=== PATIENT | male | born 1985 | race Caucasian/White ===

== ENCOUNTER 2016-11-14 17:39 | Inpatient (IN) | payer OTHER ==
[2016-11-14] MEDS ORDERED: Sodium Chloride 0.9% 1,000 ML IV ONE (17:43)
[2016-11-14] MEDS ORDERED: methylPREDNISolone Sodium Succinate 125 MG/2 ML SDV IVPUSH ONE (17:43)
[2016-11-14] MEDS ORDERED: Albuterol/Ipratropium 3.0-0.5 MG/3 ML Neb Soln NEB ONE (17:43)
[2016-11-14] MEDS ORDERED: Ondansetron 4 MG/2 ML SDV IVPUSH ONE (17:46)
--- NOTE | 2016-11-14 17:47 | EDM.PDOC ---
ED HPI GENERAL MEDICAL PROBLEM - General Stated Complaint: HARD TIME BREATHING Time Seen by Provider: 11/14/16 17:44 Source of Information: Reports: Patient - History of Present Illness INITIAL COMMENTS - FREE TEXT/NARRATIVE: HISTORY AND PHYSICAL: History of present illness: [] Patient presents with cough and wheeze he feels short of breath although is in no distress no retractions, he is secondary complaint of vomiting he states this is nonstop the last vomiting episode was 10 minutes prior to arrival, he was seen earlier in the week through walk-in clinic they had diagnosed him with viral syndrome Complains of intermittent fever and chills and shortness of breath no chest pain dizziness or palpitation no bowel or urine symptoms Review of systems: As per history of present illness and below otherwise all systems reviewed and negative. Past medical history: As per history of present illness and as reviewed below otherwise noncontributory. Surgical history: As per history of present illness and as reviewed below otherwise noncontributory. Social history: No reported history of drug or alcohol abuse. Family history: As per history of present illness and as reviewed below otherwise noncontributory. Physical exam: HEENT: Atraumatic, normocephalic, pupils reactive, negative for conjunctival pallor or scleral icterus, mucous membranes moist, throat clear, neck supple, nontender, trachea midline. Lungs: Patient does have expiratory wheeze at the base breath sounds equal bilaterally, chest nontender. Heart: S1S2, regular, negative for clicks, rubs, or JVD. Abdomen: Soft, nondistended, nontender. Negative for masses or hepatosplenomegaly. Negative for costovertebral tenderness. Pelvis: Stable nontender. Genitourinary: Deferred. Rectal: Deferred. Extremities: Atraumatic, negative for cords or calf pain. Neurovascular unremarkable. Neuro: Awake, alert, oriented. Cranial nerves II through XII unremarkable. Cerebellum unremarkable. Motor and sensory unremarkable throughout. Exam nonfocal. Diagnostics: [] CBC CMP Strep Influenza Chest 2 views Therapeutics: [] 1 L normal saline bolus DuoNeb Solu-Medrol 125 mg IV Zofran Zosyn Admitted inpatient Impression: [] cough/Wheeze Nausea/vomiting Fever Leukopenia Definitive disposition and diagnosis as appropriate pending reevaluation and review of above. Generalized Pain Score (Numeric/FACES): 8 - Related Data Allergies Allergy/AdvReac Type Severity Reaction Status Date / Time No Known Allergies Allergy Verified 11/14/16 18:04 Home Meds: Home Meds Amoxicillin/Potassium Clav [Augmentin 875-125 Tablet] 11/14/16 [History] ED ROS GENERAL - Review of Systems Review Of Systems: ROS reveals no pertinent complaints other than HPI. ED EXAM, GENERAL - Physical Exam Exam: See Below Course - Vital Signs Last Recorded V/S: Last Vital Signs Temp 38.1 C 11/14/16 17:53 Pulse 101 H 11/14/16 17:53 Resp 22 H 11/14/16 17:53 BP 137/69 11/14/16 17:53 Pulse Ox 97 11/14/16 17:53 - Orders/Labs/Meds Orders: Active Orders 24 hr Category Date Time Status Admission Status [Patient Status] [ADT] Stat ADT 11/14/16 18:57 Ordered RT Aerosol Therapy [RC] ASDIRECTED Care 11/14/16 17:43 Active Chest 2V [CR] Stat Exams 11/14/16 17:42 Taken CULTURE BLOOD [BC] Stat Lab 11/14/16 18:19 Ordered CULTURE BLOOD [BC] Stat Lab 11/14/16 18:19 Ordered INFLUENZA A+B AG SCREEN [RM] Stat Lab 11/14/16 18:35 Received STREP SCRN A RAPID W CULT CONF [RM] Stat Lab 11/14/16 18:38 Received UA W/MICROSCOPIC [URIN] Stat Lab 11/14/16 17:47 Uncollected Piperacillin/Tazobactam [Piperacil-Tazobact] 3.375 gm Med 11/14/16 18:57 Ordered Sodium Chloride 0.9% [Normal Saline] 50 ml IV ONETIME Blood Culture x2 Reflex Set [OM.PC] Stat Oth 11/14/16 18:19 Ordered Medication Orders Piperacillin Sod/Tazobactam (Sod 3.375 gm/ Sodium Chloride) 50 mls @ 100 mls/ hr IV ONETIME ONE Stop: 11/14/16 19:26 Labs: Laboratory Tests 11/14/16 11/14/16 11/14/16 Range/Units 18:10 18:10 18:10 WBC 3.23 L (4.0-11.0) K/uL RBC 5.22 (4.50-5.90) M/uL Hgb 14.3 (13.0-17.0) g/dL Hct 41.7 (38.0-50.0) % MCV 79.9 L (80.0-98.0) fL MCH 27.4 (27.0-32.0) pg MCHC 34.3 (31.0-37.0) g/dL RDW Std Deviation 37.0 (28.0-62.0) fl RDW Coeff of Kristian 13 (11.0-15.0) % Plt Count 107 L (150-400) K/uL MPV 9.90 (7.40-12.00) fL Neut % (Auto) 50.7 (48.0-80.0) % Lymph % (Auto) 44.0 H (16.0-40.0) % [place] % (Auto) 5.0 (0.0-15.0) % Eos % (Auto) 0.0 (0.0-7.0) % Baso % (Auto) 0.3 (0.0-1.5) % Neut # (Auto) 1.6 (1.4-5.7) K/uL Lymph # (Auto) 1.4 (0.6-2.4) K/uL [place] # (Auto) 0.2 (0.0-0.8) K/uL Eos # (Auto) 0.0 (0.0-0.7) K/uL Baso # (Auto) 0.0 (0.0-0.1) K/uL Nucleated RBC % 0.0 /100WBC Nucleated RBCs # 0 K/uL Lactate 1.5 (0.20-2.00) mmol/L Sodium 133 L (136-146) mmol/L Potassium 3.9 (3.5-5.1) mmol/L Chloride 99 (98-110) mmol/L Carbon Dioxide 22 (21-31) mmol/L BUN 10 (6.0-23.0) mg/dL Creatinine 0.8 (0.6-1.5) mg/dL Est Cr Clr Drug Dosing 149.81 mL/min Estimated GFR (MDRD) > 60.0 ml/min Glucose 89 (60-110) mg/dL Calcium 8.2 L (8.8-10.8) mg/dL Total Bilirubin 0.4 (0.1-1.5) mg/dL AST 43 H (5-40) IU/L ALT 47 (8-54) IU/L Alkaline Phosphatase 63 (40-150) Total Protein 7.1 (6.0-8.0) g/dL Albumin 3.7 (3.5-5.0) g/dL Globulin 3.4 (2.0-3.5) g/dL Albumin/Globulin Ratio 1.1 L (1.3-2.8) Meds: Medications Generic Name Dose Route Start Last Admin Trade Name Freq PRN Reason Stop Dose Admin Piperacillin Sod/Tazobactam 50 mls @ 100 mls/hr 11/14/16 18:57 Sod 3.375 gm/ Sodium Chloride IV 11/14/16 19:26 ONETIME ONE Discontinued Medications Generic Name Dose Route Start Last Admin Trade Name Freq PRN Reason Stop Dose Admin Albuterol/Ipratropium 3 ml 11/14/16 17:43 11/14/16 17:49 Duoneb 3.0-0.5 Mg/3 Ml NEB 11/14/16 17:44 3 ml ONETIME ONE Administration Sodium Chloride 1,000 mls @ 999 mls/hr 11/14/16 17:43 11/14/16 18:17 Normal Saline IV 11/14/16 18:43 999 mls/hr STAT ONE Administration Methylprednisolone Sodium Succinate 125 mg 11/14/16 17:43 11/14/16 18:13 Solu-Medrol IVPUSH 11/14/16 17:44 125 mg ONETIME ONE Administration Ondansetron HCl 8 mg 11/14/16 17:46 11/14/16 18:13 Zofran IVPUSH 11/14/16 17:47 8 mg ONETIME ONE Administration Departure - Departure Time of Disposition: 18:59 Disposition: Admitted As Inpatient 65 Condition: poor Clinical Impression: Leukopenia - My Orders Last 24 Hours: My Active Orders 11/14/16 17:42 Chest 2V [CR] Stat 11/14/16 17:43 RT Aerosol Therapy [RC] ASDIRECTED 11/14/16 17:47 UA W/MICROSCOPIC [URIN] Stat 11/14/16 18:19 CULTURE BLOOD [BC] Stat CULTURE BLOOD [BC] Stat Blood Culture x2 Reflex Set [OM.PC] Stat 11/14/16 18:35 INFLUENZA A+B AG SCREEN [RM] Stat 11/14/16 18:38 STREP SCRN A RAPID W CULT CONF [RM] Stat 11/14/16 18:57 Admission Status [Patient Status] [ADT] Stat Piperacillin/Tazobactam [Piperacil-Tazobact] 3.375 gm Sodium Chloride 0.9% [ Normal Saline] 50 ml IV ONETIME - Assessment/Plan Last 24 Hours: My Active Orders 11/14/16 17:42 Chest 2V [CR] Stat 11/14/16 17:43 RT Aerosol Therapy [RC] ASDIRECTED 11/14/16 17:47 UA W/MICROSCOPIC [URIN] Stat 11/14/16 18:19 CULTURE BLOOD [BC] Stat CULTURE BLOOD [BC] Stat Blood Culture x2 Reflex Set [OM.PC] Stat 11/14/16 18:35 INFLUENZA A+B AG SCREEN [RM] Stat 11/14/16 18:38 STREP SCRN A RAPID W CULT CONF [RM] Stat 11/14/16 18:57 Admission Status [Patient Status] [ADT] Stat Piperacillin/Tazobactam [Piperacil-Tazobact] 3.375 gm Sodium Chloride 0.9% [ Normal Saline] 50 ml IV ONETIME
[2016-11-14 18:40] LABS: CHLORIDE,CL 99 mmol/L (98-110); SODIUM,NA 133 mmol/L (136-146)
[2016-11-14] MEDS ORDERED: Piperacillin/Tazobactam 3.375 GM in Sodium Chloride 0.9% 50 ML IV ONE (18:57)
[2016-11-14] MEDS ORDERED: LORazepam 2 MG/ML MDV IVPUSH ONE (20:09)
[2016-11-14] MEDS ORDERED: LORazepam 2 MG/ML MDV IM PRN (20:11)
[2016-11-14] MEDS ORDERED: Levofloxacin/Dextrose 5%-Water 750 MG in Premix Bag 1 BAG IV ONE (20:12)
--- NOTE | 2016-11-14 20:25 | PCM.HP ---
H&P History of Present Illness - General Date of Service: 11/14/16 Admit Problem/Dx: Admission Diagnosis/Problem Admission Diagnosis/Problem Leukopenia Source of Information: Patient, Provider - History of Present Illness Initial Comments - Free Text/Narative: He came to the ER today complaining of over two weeks of fever and malaise. He has had mild cough. He was noted to be leukopenic. Admission was requested. He complains of severe anxiety now. A friend who is with him states that he sometimes suffers from anxiety. There seems to be some inconsistency in his history. There is some question as to whether he has truly had a fever off and on for 2 weeks. 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 He states he has not sought medical care for this recently. Generalized Pain Score (Numeric/FACES): 8 - Related Data Allergies/Adverse Reactions: Allergies Allergy/AdvReac Type Severity Reaction Status Date / Time No Known Allergies Allergy Verified 11/14/16 18:04 Home Medications: Home Meds Amoxicillin/Potassium Clav [Augmentin 875-125 Tablet] 11/14/16 [History] Past Medical History HEENT History: Reports: None Cardiovascular History: Denies: Bypass, Cardiomyopathy, Heart Failure Respiratory History: Denies: COPD, Cystic Fibrosis Gastrointestinal History: Denies: Chronic diarrhea, Cirrhosis Genitourinary History: Denies: Chronic renal insuffiency Musculoskeletal History: Reports: Amputation (traumatic amputation fingers 4,5) Neurological History: Denies: Alzheimers disease Psychiatric History: Reports: Anxiety Endocrine/Metabolic History: Denies: Diabetes, type I, Diabetes, type II Hematologic History: Denies: Anticoagulation therapy, Bleeding disorder Oncologic (Cancer) History: Reports: None - Past Surgical History Musculoskeletal Surgical History: Reports: Other (see below) (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) Social & Family History - Family History Family Medical History: Noncontributory - Tobacco Use Smoking Status *Q: Current Some Day Smoker Years of Tobacco use: 5 Packs/Tins Daily: 0.2 - Caffeine Use Caffeine Use: Reports: Soda - Recreational Drug Use Recreational Drug Use: Yes Drug Use in Last 12 Months: Yes Recreational Drug Type: Reports: Methamphetamine Recreational Drug Use Frequency: Daily H&P Review of Systems - Review of Systems: Review Of Systems: See Below General: Reports: fever HEENT: Denies: headaches Pulmonary: Reports: Shortness of Breath, Cough Cardiovascular: Reports: other (He reports a history of chest pain in the center of his chest but his history is inconsistent. He does not seem to be having pain now.) Gastrointestinal: Denies: Abdominal pain, Black stool, Bloody stool Genitourinary: Denies: dysuria, frequency Exam - Exam Exam: See Below - Vital Signs Vital Signs: Last Vital Signs Temp 99.4 F 11/14/16 19:51 Pulse 104 H 11/14/16 19:51 Resp 17 11/14/16 19:51 BP 114/65 11/14/16 19:51 Pulse Ox 94 L 11/14/16 19:51 Weight: 90.718 kg - Exam General: alert, other (He is alert but very anxious appearing. He seems hesitant to answer my questions. He seems slightly agitated. He keeps his eyes closed while I talk to him.) Neck: supple, trachea midline Lungs: Clear to auscultation (Slight coarsening of breath sounds per), Normal respiratory effort Cardiovascular: regular rate, regular rhythm Abdomen: soft. No: tenderness Rectal (Males) Exam: Deferred Extremities: No: edema Neurological: normal speech Neuro Extensive - Motor, Sensory, Reflexes: No: facial palsy (L), facial palsy ( R) Psychiatric: agitated (He seems slightly agitated.) - Patient Data Result Diagrams: 11/14/16 18:10 11/14/16 18:10 Fidel Results last 24 hrs: Microbiology 11/14/16 19:20 Anaerobic Blood Culture - Final Blood - Arm, Right *Q Meaningful Use (ADM) - VTE *Q VTE Criteria *Q: - Stroke *Q Stroke Criteria *Q: - AMI *Q AMI Criteria *Q: - Problem List (1) Fever SNOMED Code(s): 754222440 ICD Code: R50.9 - FEVER, UNSPECIFIED Status: Acute Current Visit: Yes (2) Leukopenia SNOMED Code(s): 10319686 ICD Code: D72.819 - DECREASED WHITE BLOOD CELL COUNT, UNSPECIFIED Status: Acute Current Visit: Yes Problem List Initiated/Reviewed/Updated: Yes Orders Last 24hrs: Active Orders 24 hr Category Date Time Status LYME/B.BURGDORFERI IGG/IGM [REF] Urgent Lab 11/14/16 20:17 Ordered MISC TEST Urgent Lab 11/14/16 20:20 Ordered Doxycycline [Vibramycin] 100 mg Med 11/14/16 20:15 Ordered Sodium Chloride 0.9% [Normal Saline] 100 ml IV Q12H LORazepam [Ativan] Med 11/14/16 20:11 Ordered 1 mg IM Q4H PRN Levofloxacin/Dextrose 5%-Water [Levaquin in D5W 750 MG/ Med 11/14/16 20:12 Ordered 150 ML] 750 mg Premix Bag 1 bag IV DAILY Piperacillin/Tazobactam [Piperacil-Tazobact] 3.375 gm Med 11/15/16 01:00 Ordered Sodium Chloride 0.9% [Normal Saline] 50 ml IV Q6H Medication Orders Lorazepam (Ativan) 1 mg IM Q4H PRN PRN Reason: Anxiety Assessment/Plan Comment:: Because of his behavior I am somewhat concerned about some type of drug use. Will check a urine drug screen. Will give in the meantime broad spectrum antibiotics. Will check Hx urology panel. I did call lab and requested specifically as I cannot find a specific panel on the computer ordering system. We'll monitor his white count. He denies alcohol use. I will monitor his platelets as he has thrombocytopenia as well I reviewed his chest x-ray was concerned about possibly a right-sided infiltrate. Will cover with broad- spectrum antibiotics including a respiratory fluoroquinolone.
[2016-11-14] MEDS ORDERED: Doxycycline 100 MG in Sodium Chloride 0.9% 100 ML IV SCH (20:30)
[2016-11-14] MEDS ORDERED: Sodium Chloride 0.9% 2.5 ML Syringe FLUSH PRN (20:55)
[2016-11-14] MEDS ORDERED: Sodium Chloride 0.9% 10 ML Syringe FLUSH PRN (20:55)
[2016-11-14] MEDS ORDERED: Ondansetron 4 MG/2 ML SDV IVPUSH PRN (20:55)
[2016-11-14] MEDS ORDERED: Bisacodyl 5 MG Tab PO PRN (20:55)
[2016-11-14] MEDS ORDERED: Temazepam 15 MG Cap PO PRN (20:55)
[2016-11-14] MEDS: Albuterol/Ipratropium 3.0-0.5 MG/3 ML Neb Soln NEB SCH (21:23)
[2016-11-15] MEDS: Piperacillin/Tazobactam 3.375 GM in Sodium Chloride 0.9% 50 ML IV SCH ×4 (00:35→18:04)
[2016-11-15] MEDS: Albuterol/Ipratropium 3.0-0.5 MG/3 ML Neb Soln NEB SCH ×6 (02:05→21:24)
[2016-11-15] MEDS: LORazepam 2 MG/ML MDV IV PRN ×3 (05:28→18:04)
[2016-11-15 06:29] LABS: CHLORIDE,CL 103 mmol/L (98-110); SODIUM,NA 136 mmol/L (136-146)
[2016-11-15] MEDS: Doxycycline 100 MG in Sodium Chloride 0.9% 100 ML IV SCH ×2 (08:51→19:56)
--- NOTE | 2016-11-15 11:04 | PCM.PN ---
- General Info Date of Service: 11/15/16 Subjective Update: He is generally feeling better. He has only a mild headache. - Patient Data Vitals - most recent: Last Vital Signs Temp 96.7 F 11/15/16 08:56 Pulse 77 11/15/16 08:56 Resp 16 11/15/16 08:56 BP 101/55 L 11/15/16 08:56 Pulse Ox 91 L 11/15/16 08:56 Weight - most recent: 94.5 kg I&O - last 24 hours: Intake & Output 11/14/16 11/15/16 11/15/16 22:59 06:59 14:59 Intake Total 100 850 Output Total 1880 Balance 100 -1030 Lab Results last 24 hrs: Laboratory Results - last 24 hr 11/14/16 11/14/16 11/15/16 Range/Units 21:45 21:45 06:00 WBC 1.57 L (4.0-11.0) K/uL RBC 4.93 (4.50-5.90) M/uL Hgb 13.4 (13.0-17.0) g/dL Hct 39.8 (38.0-50.0) % MCV 80.7 (80.0-98.0) fL MCH 27.2 (27.0-32.0) pg MCHC 33.7 (31.0-37.0) g/dL RDW Std Deviation 37.1 (28.0-62.0) fl RDW Coeff of Kristian 13 (11.0-15.0) % Plt Count 118 L (150-400) K/uL MPV 9.70 (7.40-12.00) fL Add Manual Diff YES Neutrophils % (Manual) 53 (48.0-80.0) % Band Neutrophils % 7 % Lymphocytes % (Manual) 38 (16.0-40.0) % Monocytes % (Manual) 2 (0.0-15.0) % Nucleated RBC % 0.0 /100WBC Absolute Seg Neuts 0.8 Band Neutrophils # 0.1 Lymphocytes # (Manual) 0.6 Monocytes # (Manual) 0 Nucleated RBCs # 0 K/uL Sodium (136-146) mmol/L Potassium (3.5-5.1) mmol/L Chloride (98-110) mmol/L Carbon Dioxide (21-31) mmol/L BUN (6.0-23.0) mg/dL Creatinine (0.6-1.5) mg/dL Est Cr Clr Drug Dosing mL/min Estimated GFR (MDRD) ml/min Glucose (60-110) mg/dL Calcium (8.8-10.8) mg/dL Magnesium (1.5-2.3) mEq/L Total Bilirubin (0.1-1.5) mg/dL AST (5-40) IU/L ALT (8-54) IU/L Alkaline Phosphatase (40-150) Total Protein (6.0-8.0) g/dL Albumin (3.5-5.0) g/dL Globulin (2.0-3.5) g/dL Albumin/Globulin Ratio (1.3-2.8) Urine Color YELLOW Urine Appearance CLEAR Urine pH 6.0 (5.0-8.0) Ur Specific [place] 1.010 (1.001-1.035) Urine Protein NEGATIVE (NEGATIVE) mg/dL Urine Glucose (UA) NEGATIVE (NEGATIVE) mg/dL Urine Ketones 15 H (NEGATIVE) mg/dL Urine Occult Blood NEGATIVE (NEGATIVE) Urine Nitrite NEGATIVE (NEGATIVE) Urine Bilirubin NEGATIVE (NEGATIVE) Urine Urobilinogen 0.2 (<2.0) EU/dL Ur Leukocyte Esterase NEGATIVE (NEGATIVE) Urine RBC 0-1 (0-2/HPF) Urine WBC 0-2 (0-5/HPF) Ur Epithelial Cells RARE (NONE-FEW) Urine Bacteria RARE (NEGATIVE) Urine Opiates Screen NEGATIVE (NEGATIVE) Ur Oxycodone Screen NEGATIVE (NEGATIVE) Urine Methadone Screen NEGATIVE (NEGATIVE) Ur Barbiturates Screen NEGATIVE (NEGATIVE) Ur Phencyclidine Scrn NEGATIVE (NEGATIVE) Ur Amphetamine Screen NEGATIVE (NEGATIVE) U Methamphetamines Scrn NEGATIVE (NEGATIVE) U Benzodiazepines Scrn NEGATIVE (NEGATIVE) U Cocaine Metab Screen NEGATIVE (NEGATIVE) U Marijuana (THC) Screen NEGATIVE (NEGATIVE) 11/15/16 Range/Units 06:00 WBC (4.0-11.0) K/uL RBC (4.50-5.90) M/uL Hgb (13.0-17.0) g/dL Hct (38.0-50.0) % MCV (80.0-98.0) fL MCH (27.0-32.0) pg MCHC (31.0-37.0) g/dL RDW Std Deviation (28.0-62.0) fl RDW Coeff of Kristian (11.0-15.0) % Plt Count (150-400) K/uL MPV (7.40-12.00) fL Add Manual Diff Neutrophils % (Manual) (48.0-80.0) % Band Neutrophils % % Lymphocytes % (Manual) (16.0-40.0) % Monocytes % (Manual) (0.0-15.0) % Nucleated RBC % /100WBC Absolute Seg Neuts Band Neutrophils # Lymphocytes # (Manual) Monocytes # (Manual) Nucleated RBCs # K/uL Sodium 136 (136-146) mmol/L Potassium 4.3 (3.5-5.1) mmol/L Chloride 103 (98-110) mmol/L Carbon Dioxide 23 (21-31) mmol/L BUN 11 (6.0-23.0) mg/dL Creatinine 0.8 (0.6-1.5) mg/dL Est Cr Clr Drug Dosing 149.81 mL/min Estimated GFR (MDRD) > 60.0 ml/min Glucose 125 H (60-110) mg/dL Calcium 8.4 L (8.8-10.8) mg/dL Magnesium 1.5 (1.5-2.3) mEq/L Total Bilirubin 0.2 (0.1-1.5) mg/dL AST 39 (5-40) IU/L ALT 44 (8-54) IU/L Alkaline Phosphatase 59 (40-150) Total Protein 7.0 (6.0-8.0) g/dL Albumin 3.7 (3.5-5.0) g/dL Globulin 3.3 (2.0-3.5) g/dL Albumin/Globulin Ratio 1.1 L (1.3-2.8) Urine Color Urine Appearance Urine pH (5.0-8.0) Ur Specific [place] (1.001-1.035) Urine Protein (NEGATIVE) mg/dL Urine Glucose (UA) (NEGATIVE) mg/dL Urine Ketones (NEGATIVE) mg/dL Urine Occult Blood (NEGATIVE) Urine Nitrite (NEGATIVE) Urine Bilirubin (NEGATIVE) Urine Urobilinogen (<2.0) EU/dL Ur Leukocyte Esterase (NEGATIVE) Urine RBC (0-2/HPF) Urine WBC (0-5/HPF) Ur Epithelial Cells (NONE-FEW) Urine Bacteria (NEGATIVE) Urine Opiates Screen (NEGATIVE) Ur Oxycodone Screen (NEGATIVE) Urine Methadone Screen (NEGATIVE) Ur Barbiturates Screen (NEGATIVE) Ur Phencyclidine Scrn (NEGATIVE) Ur Amphetamine Screen (NEGATIVE) U Methamphetamines Scrn (NEGATIVE) U Benzodiazepines Scrn (NEGATIVE) U Cocaine Metab Screen (NEGATIVE) U Marijuana (THC) Screen (NEGATIVE) Fidel Results last 24 hrs: Microbiology 11/14/16 19:20 Anaerobic Blood Culture - Final Blood - Arm, Right Med Orders - Current: Current Medications Albuterol/Ipratropium (Duoneb 3.0-0.5 Mg/3 Ml) 3 ml NEB Q4HRRT KELLY Last Admin: 11/15/16 09:31 Dose: 3 ml Bisacodyl (Dulcolax) 5 mg PO DAILY PRN PRN Reason: Constipation Piperacillin Sod/Tazobactam (Sod 3.375 gm/ Sodium Chloride) 50 mls @ 100 mls/ hr IV Q6H [facility] Last Admin: 11/15/16 06:18 Dose: 100 mls/hr Doxycycline Hyclate 100 mg/ (Sodium Chloride) 100 mls @ 100 mls/hr IV Q12H KELLY Last Admin: 11/15/16 08:51 Dose: 100 mls/hr Lorazepam (Ativan) 1 mg IV Q4H PRN PRN Reason: Anxiety Last Admin: 11/15/16 05:28 Dose: 1 mg Ondansetron HCl (Zofran) 4 mg IVPUSH Q4H PRN PRN Reason: Nausea Sodium Chloride (Saline Flush) 10 ml FLUSH ASDIRECTED PRN PRN Reason: Keep Vein Open Sodium Chloride (Saline Flush) 2.5 ml FLUSH ASDIRECTED PRN PRN Reason: Keep Vein Open Temazepam (Restoril) 15 mg PO BEDTIME PRN PRN Reason: Sleep Discontinued Medications Albuterol/Ipratropium (Duoneb 3.0-0.5 Mg/3 Ml) 3 ml NEB ONETIME ONE Stop: 11/14/16 17:44 Last Admin: 11/14/16 17:49 Dose: 3 ml Sodium Chloride (Normal Saline) 1,000 mls @ 999 mls/hr IV STAT ONE Stop: 11/14/16 18:43 Last Admin: 11/14/16 18:17 Dose: 999 mls/hr Piperacillin Sod/Tazobactam (Sod 3.375 gm/ Sodium Chloride) 50 mls @ 100 mls/ hr IV ONETIME ONE Stop: 11/14/16 19:26 Last Admin: 11/14/16 19:22 Dose: 100 mls/hr Doxycycline Hyclate 100 mg/ (Sodium Chloride) 100 mls @ 100 mls/hr IV Q12H KELLY Last Admin: 11/14/16 21:16 Dose: 100 mls/hr Levofloxacin/Dextrose 750 mg/ (Premix) 150 mls @ 100 mls/hr IV DAILY ONE Stop: 11/14/16 21:41 Last Admin: 11/14/16 22:23 Dose: 100 mls/hr Lorazepam (Ativan) 1 mg IVPUSH ONETIME ONE Stop: 11/14/16 20:10 Last Admin: 11/14/16 20:16 Dose: 1 mg Lorazepam (Ativan) 1 mg IM Q4H PRN PRN Reason: Anxiety Methylprednisolone Sodium Succinate (Solu-Medrol) 125 mg IVPUSH ONETIME ONE Stop: 11/14/16 17:44 Last Admin: 11/14/16 18:13 Dose: 125 mg Ondansetron HCl (Zofran) 8 mg IVPUSH ONETIME ONE Stop: 11/14/16 17:47 Last Admin: 11/14/16 18:13 Dose: 8 mg - Exam General: alert, oriented, cooperative Lungs: Clear to auscultation Cardiovascular: Regular Rate, Regular Rhythm Neurological: normal speech Psy/Mental Status: No: agitated - Problem List & Annotations (1) Fever SNOMED Code(s): 386721796 Code(s): R50.9 - FEVER, UNSPECIFIED Status: Acute Current Visit: Yes (2) Leukopenia SNOMED Code(s): 05720470 Code(s): D72.819 - DECREASED WHITE BLOOD CELL COUNT, UNSPECIFIED Status: Acute Current Visit: Yes - Problem List Review Problem List Initiated/Reviewed/Updated: Yes - My Orders Last 24 Hours: My Active Orders 11/14/16 20:39 Telemetry Monitoring [Cardiac Monitoring] [RC] . DIRECTED 11/14/16 20:55 Bisacodyl [Dulcolax] 5 mg PO DAILY PRN Ondansetron [Zofran] 4 mg IVPUSH Q4H PRN Sodium Chloride 0.9% [Saline Flush] 10 ml FLUSH ASDIRECTED PRN Sodium Chloride 0.9% [Saline Flush] 2.5 ml FLUSH ASDIRECTED PRN Temazepam [Restoril] 15 mg PO BEDTIME PRN Saline Lock Insert [OM.PC] Routine Resuscitation Status Routine 11/14/16 20:57 Oxygen Therapy [RC] PRN VTE/DVT Education [RC] PER UNIT ROUTINE Vital Signs [RC] Q4H 11/14/16 20:59 RT Aerosol Therapy [RC] ASDIRECTED 11/14/16 21:00 LORazepam [Ativan] 1 mg IV Q4H PRN 11/14/16 22:00 Albuterol/Ipratropium [DuoNeb 3.0-0.5 MG/3 ML] 3 ml NEB Q4HRRT 11/14/16 Dinner Regular Diet [DIET] 11/15/16 01:00 Piperacillin/Tazobactam [Piperacil-Tazobact] 3.375 gm Sodium Chloride 0.9% [ Normal Saline] 50 ml IV Q6H 11/15/16 08:00 Head wo Cont [CT] Routine 11/15/16 08:30 Doxycycline [Vibramycin] 100 mg Sodium Chloride 0.9% [Normal Saline] 100 ml IV Q12H 11/16/16 05:11 CBC WITH AUTO DIFF [HEME] AM 11/17/16 05:11 CBC WITH AUTO DIFF [HEME] AM - Plan Plan:: Because of his behavior I am somewhat concerned about some type of drug use. Will check a urine drug screen. Will give in the meantime broad spectrum antibiotics. Will check Hx urology panel. I did call lab and requested specifically as I cannot find a specific panel on the computer ordering system. We'll monitor his white count. He denies alcohol use. I will monitor his platelets as he has thrombocytopenia as well I reviewed his chest x-ray was concerned about possibly a right-sided infiltrate. Will cover with broad- spectrum antibiotics including a respiratory fluoroquinolone. 11/15/2016 Drop in his white blood cell count is noted. Continue broad-spectrum. CT of the head was normal. Anticipate discharge in about 48 hours.
[2016-11-15] MEDS ORDERED: Levofloxacin/Dextrose 5%-Water 750 MG in Premix Bag 1 BAG IV SCH (22:00)
[2016-11-16] MEDS: Piperacillin/Tazobactam 3.375 GM in Sodium Chloride 0.9% 50 ML IV SCH ×3 (01:40→12:17)
[2016-11-16] MEDS: Albuterol/Ipratropium 3.0-0.5 MG/3 ML Neb Soln NEB SCH ×4 (02:00→13:56)
[2016-11-16] MEDS: LORazepam 2 MG/ML MDV IV PRN ×2 (06:56→10:59)
[2016-11-16] MEDS: Doxycycline 100 MG in Sodium Chloride 0.9% 100 ML IV SCH (09:15)
--- NOTE | 2016-11-16 10:32 | CR ---
EXAM DATE: 11/14/16 PATIENT'S AGE: 31 Patient: VALERIE MOURA Facility: [place], [place] Site . Site : 1985 Study: XRay Chest [id number]/22/2017 6:31:15 PM Ordering Physician: Doctor Lozano Final Report: INDICATION: Cough. Wheeze. Technique: PA and lateral chest x-ray. Findings: Shallow inspiration. Bronchovascular markings in the left lung base posterior medially are mildly increased which may be a normal variant or related to mild inflammation. No focal infiltrate or consolidation in either lung. Heart size normal. Minimal elevation right hemidiaphragm. Chest otherwise negative. Dictated by Kody Levine MD @ Nov 14 2016 6:32PM (Electronic Signature) Report Signed by Proxy and Original Signed Document filed in the Medical Record. MTDD
--- NOTE | 2016-11-16 10:33 | CT ---
EXAM DATE: 11/14/16 PATIENT'S AGE: 31 Patient: VALERIE MOURA Facility: [place], [place] Site . Site : 1985 Study: CT Head [id number]/23/2017 8:29:17 AM Ordering Physician: Ashwini Gongora Final Report: INDICATION: OPTIC NERVE TUMOR INDICATION: Optic nerve tumor. TECHNIQUE: CT head without contrast. Coronal/sagittal reconstructed images. COMPARISON: None FINDINGS: CSF spaces: Within normal limits for age. Brain parenchyma: The nick-white differentiation is normal. No sign of mass, hemorrhage, or midline shift. Skull base and calvarium: The visualized paranasal sinuses and mastoid air cells are clear. The visualized orbits are grossly unremarkable. No skull fractures. IMPRESSION: Unremarkable noncontrast head CT. Dictated by Ran Amador MD @ 11/15/2016 8:48:03 AM Dictated by: Ran Amador MD @ 11/15/2016 08:48:16 (Electronic Signature) Report Signed by Proxy and Original Signed Document filed in the Medical Record. [facility]
--- NOTE | 2016-11-16 10:37 | PCM.PN ---
- General Info Date of Service: 11/16/16 Admission Dx/Problem (Free Text): Admission Diagnosis/Problem Admission Diagnosis/Problem Leukopenia Subjective Update: patient denies any pain this morning. He is tolerating oral intake and voiding appropriately. He is ambulating without assistance. He denies any chest pain, palpitations, shortness of breath, wheezing, cough, abdominal pain, nausea, vomiting, constipation, diarrhea, dysuria, hematuria. Functional Status: Reports: pain controlled, tolerating diet, ambulating, urinating - Review of Systems General: Reports: No Symptoms HEENT: Reports: no symptoms Pulmonary: Reports: no symptoms Cardiovascular: Reports: No Symptoms Gastrointestinal: Reports: No symptoms Genitourinary: Reports: no symptoms Musculoskeletal: Reports: no symptoms Skin: Reports: no symptoms Neurological: Reports: No Symptoms Psychiatric: Reports: no symptoms - Patient Data Vitals - most recent: Last Vital Signs Temp 98.4 F 11/16/16 07:29 Pulse 72 11/16/16 07:29 Resp 14 11/16/16 07:29 BP 109/70 11/16/16 07:29 Pulse Ox 91 L 11/16/16 07:29 Weight - most recent: 208 lb 5.389 oz I&O - last 24 hours: Intake & Output 11/15/16 11/16/16 11/16/16 22:59 06:59 14:59 Intake Total 1380 1000 530 Output Total 1200 450 Balance 180 550 530 Lab Results last 24 hrs: Laboratory Results - last 24 hr 11/16/16 Range/Units 06:10 WBC 3.87 L (4.0-11.0) K/uL RBC 5.19 (4.50-5.90) M/uL Hgb 14.1 (13.0-17.0) g/dL Hct 42.0 (38.0-50.0) % MCV 80.9 (80.0-98.0) fL MCH 27.2 (27.0-32.0) pg MCHC 33.6 (31.0-37.0) g/dL RDW Std Deviation 37.9 (28.0-62.0) fl RDW Coeff of Kristian 13 (11.0-15.0) % Plt Count 145 L (150-400) K/uL MPV 10.10 (7.40-12.00) fL Neut % (Auto) 44.7 L (48.0-80.0) % Lymph % (Auto) 42.9 H (16.0-40.0) % [place] % (Auto) 12.1 (0.0-15.0) % Eos % (Auto) 0.0 (0.0-7.0) % Baso % (Auto) 0.3 (0.0-1.5) % Neut # (Auto) 1.7 (1.4-5.7) K/uL Lymph # (Auto) 1.7 (0.6-2.4) K/uL [place] # (Auto) 0.5 (0.0-0.8) K/uL Eos # (Auto) 0.0 (0.0-0.7) K/uL Baso # (Auto) 0.0 (0.0-0.1) K/uL Nucleated RBC % 0.0 /100WBC Nucleated RBCs # 0 K/uL Fidel Results last 24 hrs: Microbiology 11/14/16 19:25 Aerobic Blood Culture - Preliminary Blood - Arm, Left NO GROWTH AFTER 1 DAY Anaerobic Blood Culture - Preliminary NO GROWTH AFTER 1 DAY 11/14/16 19:20 Aerobic Blood Culture - Preliminary Blood - Arm, Right NO GROWTH AFTER 1 DAY Anaerobic Blood Culture - Final Med Orders - Current: Current Medications Albuterol/Ipratropium (Duoneb 3.0-0.5 Mg/3 Ml) [address] [facility] Last Admin: 11/16/16 09:14 Dose: 3 ml Bisacodyl (Dulcolax) 5 mg PO DAILY PRN PRN Reason: Constipation Piperacillin Sod/Tazobactam (Sod 3.375 gm/ Sodium Chloride) 50 mls @ 100 mls/ hr IV Q6H [facility] Last Admin: 11/16/16 06:58 Dose: 100 mls/hr Doxycycline Hyclate 100 mg/ (Sodium Chloride) 100 mls @ 100 mls/hr IV Q12H [facility] Last Admin: 11/16/16 09:15 Dose: 100 mls/hr Levofloxacin/Dextrose 750 mg/ (Premix) 150 mls @ 100 mls/hr IV Q24H [facility] Last Infusion: 11/15/16 23:35 Dose: Infused Lorazepam (Ativan) 1 mg IV Q4H PRN PRN Reason: Anxiety Last Admin: 11/16/16 06:56 Dose: 1 mg Ondansetron HCl (Zofran) 4 mg IVPUSH Q4H PRN PRN Reason: Nausea Sodium Chloride (Saline Flush) 10 ml FLUSH ASDIRECTED PRN PRN Reason: Keep Vein Open Sodium Chloride (Saline Flush) 2.5 ml FLUSH ASDIRECTED PRN PRN Reason: Keep Vein Open Temazepam (Restoril) 15 mg PO BEDTIME PRN PRN Reason: Sleep Discontinued Medications Albuterol/Ipratropium (Duoneb 3.0-0.5 Mg/3 Ml) 3 ml NEB ONETIME ONE Stop: 11/14/16 17:44 Last Admin: 11/14/16 17:49 Dose: 3 ml Sodium Chloride (Normal Saline) 1,000 mls @ 999 mls/hr IV STAT ONE Stop: 11/14/16 18:43 Last Admin: 11/14/16 18:17 Dose: 999 mls/hr Piperacillin Sod/Tazobactam (Sod 3.375 gm/ Sodium Chloride) 50 mls @ 100 mls/ hr IV ONETIME ONE Stop: 11/14/16 19:26 Last Admin: 11/14/16 19:22 Dose: 100 mls/hr Doxycycline Hyclate 100 mg/ (Sodium Chloride) 100 mls @ 100 mls/hr IV Q12H [facility] Last Admin: 11/14/16 21:16 Dose: 100 mls/hr Levofloxacin/Dextrose 750 mg/ (Premix) 150 mls @ 100 mls/hr IV DAILY ONE Stop: 11/14/16 21:41 Last Admin: 11/14/16 22:23 Dose: 100 mls/hr Lorazepam (Ativan) 1 mg IVPUSH ONETIME ONE Stop: 11/14/16 20:10 Last Admin: 11/14/16 20:16 Dose: 1 mg Lorazepam (Ativan) 1 mg IM Q4H PRN PRN Reason: Anxiety Methylprednisolone Sodium Succinate (Solu-Medrol) 125 mg IVPUSH ONETIME ONE Stop: 11/14/16 17:44 Last Admin: 11/14/16 18:13 Dose: 125 mg Ondansetron HCl (Zofran) 8 mg IVPUSH ONETIME ONE Stop: 11/14/16 17:47 Last Admin: 11/14/16 18:13 Dose: 8 mg - Exam Quality Assessment: DVT prophylaxis (scd's) General: alert, oriented, cooperative, no acute distress Neck: supple Lungs: Clear to auscultation, Normal respiratory effort Cardiovascular: Regular Rate, Regular Rhythm Abdomen: bowel sounds present, soft, no tenderness, no distension Extremities: no edema, no calf tenderness Peripheral Pulses: 2+: radial (L), radial (R) Skin: warm, dry, intact Neurological: no new focal deficit Psy/Mental Status: alert, normal affect, normal mood, anxious (At times the patient is anxious. Ativan helps relieve anxiety.) - Problem List & Annotations (1) Fever SNOMED Code(s): 218943929 Code(s): R50.9 - FEVER, UNSPECIFIED Status: Acute Current Visit: Yes (2) Leukopenia SNOMED Code(s): 40925880 Code(s): D72.819 - DECREASED WHITE BLOOD CELL COUNT, UNSPECIFIED Status: Acute Current Visit: Yes - Problem List Review Problem List Initiated/Reviewed/Updated: Yes - Plan Plan:: #1. Leukopenia: -White Blood cell count has improved to 3.9 today. Previous was 1.6. -Patient continues on broad spectrum antibiotics including Zosyn, doxycycline and Levaquin. -Strep and flu swabs have been negative. -Multiple tickborne illness labs are pending. -Stool cultures pending. -Absolute neutrophil count is 2000. #2. Fever: -Patient has been afebrile since presenting to the emergency room 2 days ago. He has not needed Tylenol while admitted. -Chest x-ray was unremarkable. -Liver function tests are normal. Urinalysis is unremarkable. -For cultures times one day are negative. 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 Head CT was negative. Disposition: Possible discharge tomorrow. Patient will remain admitted for one more day for additional IV antibiotics. Probable discharge with 7 more days of doxycycline.
[2016-11-16 12:13] VITALS: BP 98/63
--- NOTE | 2016-11-19 16:13 | PCM.DCSUM1 ---
Discharge Summary - Hospital Course Free Text/Narrative:: Admission diagnoses: #1. Leukopenia #2. Fever #3. Thrombocytopenia #4. History of drug abuse Discharge diagnoses: #1. Leukopenia, improving #2. Fever, resolved #3. Thrombocytopenia, improving #4. History of drug abuse 31-year-old male admitted with fever and malaise. He was found to be febrile while in the emergency room and also to have a decreased white blood cell count. He was started on broad-spectrum antibiotics including Zosyn, doxycycline and Levaquin. White blood cell count improved from 1.6 to 3.9 at time of discharge. Absolute neutrophil count at time of discharge is 2000. Blood cultures times one day were negative. Strep and flu swabs were negative. Chest x-ray was negative. There is some question as to the validity of the patient's story of having fever malaise over the past 2 weeks. He does suffer from anxiety and seemed quite anxious during admission. Urine drug screen was negative. 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 The patient was also thrombocytopenic at time of admission with his platelet count improving at time of discharge from 107 to 145. The patient also had stool cultures and tick borne illness labs pending at time of discharge. At time of discharge the patient was tolerating oral intake, voiding appropriately , ambulating and had no complaints of headache, dizziness, chest pain, palpitations, shortness of breath, wheezing, cough, abdominal pain, nausea, vomiting, constipation, diarrhea. - Discharge Data Discharge Date: 11/16/16 Discharge Disposition: Home, Self-Care 01 Condition: Fair - Discharge Diagnosis/Problem(s) (1) Fever SNOMED Code(s): 324323207 ICD Code: R50.9 - FEVER, UNSPECIFIED Status: Acute (2) Leukopenia SNOMED Code(s): 80072512 ICD Code: D72.819 - DECREASED WHITE BLOOD CELL COUNT, UNSPECIFIED Status: Acute - Patient Instructions Diet: Usual Diet as Tolerated Activity: As Tolerated Driving: May Drive Today Showering/Bathing: May Shower Notify Provider of: Fever, Increased Pain, Nausea and/or Vomiting - Discharge Plan Prescriptions/Med Rec: Doxycycline [Vibramycin] 100 mg PO Q12HR #14 cap Home Medications: Home Meds Doxycycline [Vibramycin] 100 mg PO Q12HR #14 cap 11/16/16 [Rx] Patient Handouts: Fever, Adult, Doxycycline tablets or capsules Referrals: [facility] [Outside] - Discharge Summary/Plan Comment DC Time >30 min.: No Discharge Summary/Plan Comment: Admission diagnoses: #1. Leukopenia #2. Fever #3. Thrombocytopenia #4. History of drug abuse Discharge diagnoses: #1. Leukopenia, improving #2. Fever, resolved #3. Thrombocytopenia, improving #4. History of drug abuse 31-year-old male admitted with fever and malaise. He was found to be febrile while in the emergency room and also to have a decreased white blood cell count. He was started on broad-spectrum antibiotics including Zosyn, doxycycline and Levaquin. White blood cell count improved from 1.6 to 3.9 at time of discharge. Absolute neutrophil count at time of discharge is 2000. Blood cultures times one day were negative. Strep and flu swabs were negative. Chest x-ray was negative. There is some question as to the validity of the patient's story of having fever malaise over the past 2 weeks. He does suffer from anxiety and seemed quite anxious during admission. Urine drug screen was negative. 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 The patient was also thrombocytopenic at time of admission with his platelet count improving at time of discharge from 107 to 145. The patient also had stool cultures and tick borne illness labs pending at time of discharge. At time of discharge the patient was tolerating oral intake, voiding appropriately , ambulating and had no complaints of headache, dizziness, chest pain, palpitations, shortness of breath, wheezing, cough, abdominal pain, nausea, vomiting, constipation, diarrhea. Discharge plan: #1. Patient discharged on doxycycline 100 mg twice a day, 14 tabs, zero refills. #2. Patient will followup with Dr. Faria on November 23, 2016. - Patient Data Vitals - Most Recent: Last Vital Signs Temp 98.6 F 11/16/16 11:46 Pulse 82 11/16/16 11:46 Resp 17 11/16/16 11:46 BP 98/63 11/16/16 12:10 Pulse Ox 93 L 11/16/16 11:46 Weight - Most Recent: 208 lb 5.389 oz YVON Results - Last 24 hrs: Microbiology 11/14/16 19:25 Aerobic Blood Culture - Preliminary Blood - Arm, Left NO GROWTH AFTER 4 DAYS Anaerobic Blood Culture - Preliminary NO GROWTH AFTER 4 DAYS 11/14/16 19:20 Aerobic Blood Culture - Preliminary Blood - Arm, Right NO GROWTH AFTER 4 DAYS Anaerobic Blood Culture - Final Med Orders - Current: Current Medications Discontinued Medications Albuterol/Ipratropium (Duoneb 3.0-0.5 Mg/3 Ml) 3 ml NEB ONETIME ONE Stop: 11/14/16 17:44 Last Admin: 11/14/16 17:49 Dose: 3 ml Albuterol/Ipratropium (Duoneb 3.0-0.5 Mg/3 Ml) 3 ml NEB Q4HRRT [facility] Last Admin: 11/16/16 13:56 Dose: Not Given Bisacodyl (Dulcolax) 5 mg PO DAILY PRN PRN Reason: Constipation Sodium Chloride (Normal Saline) 1,000 mls @ 999 mls/hr IV STAT ONE Stop: 11/14/16 18:43 Last Admin: 11/14/16 18:17 Dose: 999 mls/hr Piperacillin Sod/Tazobactam (Sod 3.375 gm/ Sodium Chloride) 50 mls @ 100 mls/ hr IV ONETIME ONE Stop: 11/14/16 19:26 Last Admin: 11/14/16 19:22 Dose: 100 mls/hr Doxycycline Hyclate 100 mg/ (Sodium Chloride) 100 mls @ 100 mls/hr IV Q12H [facility] Last Admin: 11/14/16 21:16 Dose: 100 mls/hr Levofloxacin/Dextrose 750 mg/ (Premix) 150 mls @ 100 mls/hr IV DAILY ONE Stop: 11/14/16 21:41 Last Admin: 11/14/16 22:23 Dose: 100 mls/hr Piperacillin Sod/Tazobactam (Sod 3.375 gm/ Sodium Chloride) 50 mls @ 100 mls/ hr IV Q6H [facility] Last Admin: 11/16/16 12:17 Dose: 100 mls/hr Doxycycline Hyclate 100 mg/ (Sodium Chloride) 100 mls @ 100 mls/hr IV Q12H [facility] Last Admin: 11/16/16 09:15 Dose: 100 mls/hr Levofloxacin/Dextrose 750 mg/ (Premix) 150 mls @ 100 mls/hr IV Q24H [facility] Last Infusion: 11/15/16 23:35 Dose: Infused Lorazepam (Ativan) 1 mg IVPUSH ONETIME ONE Stop: 11/14/16 20:10 Last Admin: 11/14/16 20:16 Dose: 1 mg Lorazepam (Ativan) 1 mg IM Q4H PRN PRN Reason: Anxiety Lorazepam (Ativan) 1 mg IV Q4H PRN PRN Reason: Anxiety Last Admin: 11/16/16 10:59 Dose: 1 mg Methylprednisolone Sodium Succinate (Solu-Medrol) 125 mg IVPUSH ONETIME ONE Stop: 11/14/16 17:44 Last Admin: 11/14/16 18:13 Dose: 125 mg Ondansetron HCl (Zofran) 8 mg IVPUSH ONETIME ONE Stop: 11/14/16 17:47 Last Admin: 11/14/16 18:13 Dose: 8 mg Ondansetron HCl (Zofran) 4 mg IVPUSH Q4H PRN PRN Reason: Nausea Sodium Chloride (Saline Flush) 10 ml FLUSH ASDIRECTED PRN PRN Reason: Keep Vein Open Sodium Chloride (Saline Flush) 2.5 ml FLUSH ASDIRECTED PRN PRN Reason: Keep Vein Open Temazepam (Restoril) 15 mg PO BEDTIME PRN PRN Reason: Sleep *Q Meaningful Use (DIS) - VTE *Q VTE Criteria *Q: - Stroke *Q Stroke Criteria *Q: - AMI *Q AMI Criteria *Q:
== END 2016-11-16 16:35 | disposition home or self-care (01) | DRG 816 ==
LOC: MW.ED 17:39 → MW.MS 18:57
PROVIDERS: ADMIT Family Medicine; ATTEND Family Medicine
DX: D72.819 Decreased white blood cell count, unspecified (principal); R50.9 Fever, unspecified; D69.6 Thrombocytopenia, unspecified; F41.9 Anxiety disorder, unspecified; F19.21 Other psychoactive substance dependence, in remission
CPT/HCPCS: 36415; 70450; 70450-26; 71020; 71020-26; 80053; 80305; 81001; 83605; 83735; 85025; 86618; 86666; 86757; 87040; 87046; 87081; 87804; 87880; 87899; 94640; 94664; 96365; 96375; 99285; 99285-25; J1956; J2060; J2405; J2543; J2930; J7030; J7040; J7050

== ENCOUNTER 2018-04-18 13:12 | Emergency (ER) | payer OTHER ==
[2018-04-18] MEDS ORDERED: cefTRIAXone 250 MG in Lidocaine 1% 1 ML IM ONE (13:26)
--- NOTE | 2018-04-18 13:26 | EDM.PDOC ---
ED HPI GENERAL MEDICAL PROBLEM - General Chief Complaint: Genitourinary Problem Stated Complaint: PT SPOKE TO NURSE Time Seen by Provider: 04/18/18 13:21 - History of Present Illness INITIAL COMMENTS - FREE TEXT/NARRATIVE: HISTORY AND PHYSICAL: History of present illness: Patient is a 32-year-old white male presents with a concern of STD exposure in the form of Chlamydia states partner was diagnosed possibly with that he denies any symptoms at this time. Review of systems: As per history of present illness and below otherwise all systems reviewed and negative. Past medical history: As per history of present illness and as reviewed below otherwise noncontributory. Surgical history: As per history of present illness and as reviewed below otherwise noncontributory. Social history: No reported history of drug or alcohol abuse. Family history: As per history of present illness and as reviewed below otherwise noncontributory. Physical exam: HEENT: Atraumatic, normocephalic, pupils reactive, negative for conjunctival pallor or scleral icterus, mucous membranes moist, throat clear, neck supple, nontender, trachea midline. Lungs: Clear to auscultation, breath sounds equal bilaterally, chest nontender. Heart: S1S2, regular, negative for clicks, rubs, or JVD. Abdomen: Soft, nondistended, nontender. Negative for masses or hepatosplenomegaly. Negative for costovertebral tenderness. Pelvis: Stable nontender. Genitourinary: Deferred. Rectal: Deferred. Extremities: Atraumatic, negative for cords or calf pain. Neurovascular unremarkable. Neuro: Awake, alert, oriented. Cranial nerves II through XII unremarkable. Cerebellum unremarkable. Motor and sensory unremarkable throughout. Exam nonfocal. Diagnostics: UA for GC chlamydia Therapeutics: Rocephin 250 mg IM Impression: #1 STD exposure Definitive disposition and diagnosis as appropriate pending reevaluation and review of above. - Related Data Allergies Allergy/AdvReac Type Severity Reaction Status Date / Time acetaminophen [From Lortab] Allergy Itching Verified 01/21/18 17:07 hydrocodone [From Lortab] Allergy Itching Verified 01/21/18 17:07 Home Meds: Home Meds . [No Known Home Meds] 01/21/18 [History] Past Medical History HEENT History: Reports: None Gastrointestinal History: Reports: GERD, Hiatal Hernia, Other (See Below) Other Gastrointestinal History: takes no meds for heartburn. 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 Musculoskeletal History: Reports: Amputation, Fracture, Other (See Below) Other Musculoskeletal History: right hand ring and pinky finger from accident Psychiatric History: Reports: Addiction, Anxiety, Depression Other Psychiatric History: meth use via IV Oncologic (Cancer) History: Reports: None - Infectious Disease History Infectious Disease History: Reports: Chicken Pox - Past Surgical History HEENT Surgical History: Reports: None Musculoskeletal Surgical History: Reports: Other (See Below) Social & Family History - Family History Family Medical History: Noncontributory - Caffeine Use Caffeine Use: Reports: Soda ED ROS GENERAL - Review of Systems Review Of Systems: ROS reveals no pertinent complaints other than HPI. ED EXAM, GENERAL - Physical Exam Exam: See Below (See dictation) Course - Vital Signs Last Recorded V/S: Last Vital Signs Temp 36.1 C 04/18/18 13:21 Pulse 106 H 04/18/18 13:21 Resp 15 04/18/18 13:21 BP 133/87 04/18/18 13:21 Pulse Ox 98 04/18/18 13:21 Departure - Departure Time of Disposition: 13:25 Disposition: Home, Self-Care 01 Condition: Good Clinical Impression: Exposure to STD - Discharge Information *PRESCRIPTION DRUG MONITORING PROGRAM REVIEWED*: Not Applicable *COPY OF PRESCRIPTION DRUG MONITORING REPORT IN PATIENT GARRY: Not Applicable Referrals: PCP,None [Primary Care Provider] - Additional Instructions: The following information is given to patients seen in the emergency department who are being discharged to home. This information is to outline your options for follow-up care. We provide all patients seen in our emergency department with a follow-up referral. The need for follow-up, as well as the timing and circumstances, are variable depending upon the specifics of your emergency department visit. If you don't have a primary care physician on staff, we will provide you with a referral. We always advise you to contact your personal physician following an emergency department visit to inform them of the circumstance of the visit and for follow-up with them and/or the need for any referrals to a consulting specialist. The emergency department will also refer you to a specialist when appropriate. This referral assures that you have the opportunity for followup care with a specialist. All of these measure are taken in an effort to provide you with optimal care, which includes your followup. Under all circumstances we always encourage you to contact your private physician who remains a resource for coordinating your care. When calling for followup care, please make the office aware that this follow-up is from your recent emergency room visit. If for any reason you are refused follow-up, please contact the [facility] emergency department at and asked to speak to the emergency department charge nurse. HARSH [id number] [address] [place] [id number] I will primary care above and/or Board of Health as discussed azithromycin as prescribed return as needed as discussed all partners and contact should be evaluated
[2018-04-18 14:04] VITALS: BP 129/78
== END 2018-04-18 13:54 | disposition home or self-care (01) ==
LOC: MW.ED 13:12
DX: Z20.2 Contact with and (suspected) exposure to infections with a predominantly sexual mode of transmission (principal); Z88.5 Allergy status to narcotic agent; Z88.8 Allergy status to other drugs, medicaments and biological substances
CPT/HCPCS: 87491; 87591; 96372; 99283; J0696; J2001; 99282

== ENCOUNTER 2019-09-28 08:15 | Emergency (ER) | payer BC ==
[2019-09-28] MEDS ORDERED: Ketorolac 30 MG/ML SDV IVPUSH ONE (08:25)
[2019-09-28] MEDS ORDERED: LORazepam 2 MG/ML SDV IVPUSH ONE (08:25)
[2019-09-28 09:10] LABS: BLOOD UREA NITROGEN,BUN 15 mg/dL (7.0-18.0); CARBON DIOXIDE,CO2 26.6 mmol/L (21.0-32.0); CHLORIDE,CL 101 mmol/L (98-107); GLUCOSE RANDOM 80 mg/dL (74-106); POTASSIUM,K 4.4 mmol/L (3.5-5.1); SODIUM,NA 137 mmol/L (136-148)
--- NOTE | 2019-09-28 09:40 | CR ---
Chest: AP view of the chest is obtained. Comparison: Previous chest x-ray of 11/14 is a 17. Heart size and mediastinum are normal. Lungs are clear with no acute parenchymal change. Bony structures are grossly intact. Impression: 1. Nothing acute is seen on AP chest x-ray. Diagnostic code #1 This report was dictated in [place] Standard Time
[2019-09-28 10:30] LABS: BILIRUBIN INDIRECT 0.15001
[2019-09-28] MEDS ORDERED: Piperacillin/Tazobactam 3.375 GM in Sodium Chloride 0.9% 50 ML IV ONE (11:10)
[2019-09-28] MEDS ORDERED: Vancomycin 1.5 GM in Sodium Chloride 0.9% 500 ML IV STA (11:10)
[2019-09-28] MEDS ORDERED: Iopamidol 755 MG/ML 500 ML Multipack Bottle IVPUSH STA (11:26)
--- NOTE | 2019-09-28 11:39 | CT ---
Head CT Technique: Multiple axial sections through the brain were obtained. Intravenous contrast was not utilized. Comparison: No prior intracranial imaging is available. Findings: Ventricles along with basal cisterns and sulci over the convexities appear within normal limits for the patient's age. No abnormal parenchymal densities are seen. No evidence of intracranial hemorrhage. No midline shift or mass effect is seen. Bone window settings were reviewed. Mastoid sinuses and visualized paranasal sinuses show nothing acute. No acute calvarial abnormality is appreciated. Impression: 1. No acute intracranial abnormality is identified on noncontrast head CT exam. Diagnostic code #1 This report was dictated in [place] Standard Time
--- NOTE | 2019-09-28 11:39 | CT ---
CT chest Technique: Multiple axial sections through the chest are obtained. Intravenous contrast was utilized. Study performed as pulmonary antegrade protocol. Findings: Pulmonary arteries are moderately well-opacified. No filling defects are seen to indicate pulmonary embolism. No pericardial thickening is seen. Mediastinum and hilar regions show no adenopathy. No axillary adenopathy is seen. Aorta shows no aneurysm or dissection. Lungs are clear. No acute parenchymal change is seen within either lung. No pleural effusions are seen. Bone window settings were reviewed. No acute osseous finding is appreciated. Impression: 1. No findings of pulmonary embolism. 2. Nothing acute is seen on CT study of the chest. Diagnostic code #1 This report was dictated in [place] Standard Time
[2019-09-28 11:42] VITALS: BP 96/54; PULSE 94
--- NOTE | 2019-09-28 12:10 | EDM.PDOC ---
ED HPI GENERAL MEDICAL PROBLEM - General Chief Complaint: General Stated Complaint: TROUBLE BREATHING Time Seen by Provider: 09/28/19 08:27 - History of Present Illness INITIAL COMMENTS - FREE TEXT/NARRATIVE: HPI 33-year-old male with history of methamphetamine abuse presents for evaluation of poorly characterized malaise and rash of uncertain duration. Endorses questionable fever and chest discomfort. Repeat HPI (9:10 AM) with patient noting that he feels chest tightness, mild shortness breath, and has been experiencing a mildly uncomfortable rash approximately one week that involves his torso, back, and hands. Notes that he had full childhood immunizations, denies medications, drugs, last methamphetamine use one month ago, no recent travel. Denies recent or distant penile lesions or penile discharge. M/S/F/SocHx notable for: please see HPI; remainder reviewed with patient and in chart. ROS: Negative constitutional, eye, cardiovascular, pulmonary, GI, , MSK, skin , neurologic, psychiatric, endocrine unless noted in the HPI. Exam HR 111, RR 22, BP 120/89, T 37.2C, SaO2 90% on room air. Gen: Pleasant, non-toxic appearing, resting comfortably. HEENT: NC, AT, PEERL, EOMI. Resp: Clear to auscultation bilaterally, normal work of breathing, no accessory muscle usage. Card: Regular rate and rhythm with no murmurs, rubs, or gallops, extremities warm and well perfused. GI: Non-tender to palpation throughout all quadrants, no focal tenderness at McBurney's point, negative Agudelo's sign, non-distended, no rebound or guarding. : No suprapubic tenderness to palpation. MSK: No visible deformities, strength and tone without visually appreciable deficit. Skin: multiple 1-8 mm scattered erythematous, brownish populism plaques on the palms, soles, and trunk. Negative Nikolsky. Neuro: alert and oriented 3, no facial asymmetry, vision and hearing WNL. Psych: agitated, appears mildly confused, exaggerated pain response. Labs / Imaging: WBC 4.01, HB 12.6, PLT 149, sodium 137, potassium 4.4, creatinine 0.8, AST 36, ALT 43, alkaline phosphatase 131, total bilirubin 0.2, indirect bilirubin 0.150 , indirect bilirubin <0.05, creatinine 0.8. Troponin <0.050 TSH 2.70 lactic acid 2.2 CRP 4.20 ESR 60 LDH 325 d-dimer 1.16, INR 0.90, PTT 26.7, fibrinogen 453. UA given negative nitrate, negative leukocyte esterase, negative protein. UDS with methamphetamines but no amphetamine. EtOH <3 EKG: SR 105 bpm, OR 159 ms, no OR segment depressions, QRS 90 ms, no ST segment elevations or depressions, QTc 430 ms, no discordant T wave inversions. CXR: nothing acute is seen on AP chest x-ray. Monospot negative, influenza A & B negative. CT PE: no findings of pulmonary embolism. Nothing acute is seen on CT study the chest. CT head: no acute intracranial abnormality is identified on non-contrast head CT exam. MDM Previous chart, nursing note, labs, imaging, and vitals reviewed. A: 33-year-old male with a history of IVDU (methamphetamine) presents for evaluation of headache, fever, poorly characterized chest discomfort, mild confusion, and a diffuse mildly tender rash of his trunk, arms, and palms that is been progressive over upwards of a week. DDx: secondary syphilis, pityriasis rosea, VZV disseminated, TTP, ITP, DIC, disseminated gonococcal disease, RMSF, Purpura fulminans, sepsis, PE, pericarditis, myocarditis, endocarditis, septic emboli, meningitis, encephalitis , hyperthyroidism, psoriasis, eczema, erythema multiforme, and mycosis fungoides , and drug eruption. Evaluation: patients underlying conditions of unclear etiology, however sepsis versus TTP our most prominent on the differential. That being said influenza with concurrent secondary syphilis, pityriasis rosea, RMSF, or conceivably disseminated gonococcal disease cannot be fully excluded. Supportive interventions as below. ED Course: limited history available following primary assessment, patient appears uncomfortable, 1 L NS, 30 mg Toradol, and 0.5 mg Ativan given for initial symptomatic treatment. Repeat evaluation at 9 AM and then 9:10 AM with patient significantly more comfortable and less agitated. 09:31 Pt refused second set of blood cultures (apparently due to difficulty in obtaining). 2nd set of blood cultures obtained with ultrasound guided IV placement as below. 11:12 - empiric antibiotics (vancomycin and Zosyn) ordered. 11:57 Dr. Spann in [place] [facility] accepting. Patient transferred by ALS. Impression: AMS, rash, chest pain. (please reference below for remainder of encounter information) Critical Care Time Organ system(s): Cardiopulmonary Intervention: Assessment of the patient, interpretation of studies, communication related to patient care. Time: 30 minutes were spent directly related to patient care exclusive of separately billed procedures. Ultrasound Guided IV Placement Indication: Unable to obtain venous access by visualization or palpation. Consent: Verbal. A superficial left upper arm vein was cannulized with a 18 gauge angiocatheter. Blood could be easily aspirated and the IV flushed without resistance, no soft tissue extravasation or pain was appreciated when 10 mL of normal saline was flushed. Prior to cannulization the site was cleaned with chlorhexidine, sterile lubricant was used for ultrasound transducing and the probe was covered with a sterile cover. The skin was prepped in the usual manner with chlorhexidine and sterile lubricant was used for ultrasound transducing. During cannulization the needle and angiocatheter were directly visualized in the lumen of the vein. Chest Pain Score (Numeric/FACES): 10 - Related Data Allergies Allergy/AdvReac Type Severity Reaction Status Date / Time acetaminophen [From Lortab] Allergy Itching Verified 09/28/19 08:24 hydrocodone [From Lortab] Allergy Itching Verified 09/28/19 08:24 Home Meds: Home Meds . [No Known Home Meds] 01/21/18 [History] Past Medical History HEENT History: Reports: None Gastrointestinal History: Reports: GERD, Hiatal Hernia, Other (See Below) Other Gastrointestinal History: takes no meds for heartburn. 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 Musculoskeletal History: Reports: Amputation, Fracture, Other (See Below) Other Musculoskeletal History: right hand ring and pinky finger from accident Psychiatric History: Reports: Addiction, Anxiety, Depression Other Psychiatric History: meth use via IV Oncologic (Cancer) History: Reports: None - Infectious Disease History Infectious Disease History: Reports: Chicken Pox - Past Surgical History HEENT Surgical History: Reports: None Musculoskeletal Surgical History: Reports: Other (See Below) Social & Family History - Family History Family Medical History: Noncontributory - Tobacco Use Smoking Status *Q: Unknown Ever Smoked - Caffeine Use Caffeine Use: Reports: None - Recreational Drug Use Recreational Drug Use: Yes Recreational Drug Type: Reports: Methamphetamine ED ROS GENERAL - Review of Systems Review Of Systems: See Below ED EXAM, GENERAL - Physical Exam Exam: See Below Course - Vital Signs Last Recorded V/S: Last Vital Signs Temp 36.3 C 09/28/19 11:41 Pulse 94 09/28/19 11:41 Resp 18 09/28/19 11:41 BP 96/54 L 09/28/19 11:41 Pulse Ox 100 09/28/19 11:41 - Orders/Labs/Meds Orders: Active Orders 24 hr Category Date Time Status EKG Documentation Completion [RC] STAT Care 09/28/19 09:00 Active CULTURE BLOOD [BC] Stat Lab 09/28/19 08:41 Received CULTURE BLOOD [BC] Stat Lab 09/28/19 10:35 Received HAPTOGLOBIN [REF] Stat Lab 09/28/19 08:30 Received RPR (SYPHILIS SERO) W/ RFLX [REF] Stat Lab 09/28/19 08:30 Received Vancomycin 1.5 gm Med 09/28/19 11:10 Active Sodium Chloride 0.9% [Normal Saline] 500 ml IV NOW Blood Culture x2 Reflex Set [OM.PC] Stat Oth 09/28/19 08:25 Ordered Medication Orders Vancomycin HCl 1.5 gm/ Sodium (Chloride) 500 mls @ 333 mls/hr IV NOW STA Stop: 09/28/19 12:40 Labs: Laboratory Tests 09/28/19 09/28/19 09/28/19 Range/Units 08:30 08:30 08:30 WBC 4.01 (4.0-11.0) K/uL RBC 4.77 (4.50-5.90) M/uL Hgb 12.6 L (13.0-17.0) g/dL Hct 38.8 (38.0-50.0) % MCV 81.3 (80.0-98.0) fL MCH 26.4 L (27.0-32.0) pg MCHC 32.5 (31.0-37.0) g/dL RDW Std Deviation 41.5 (28.0-62.0) fl RDW Coeff of Kristian 14 (11.0-15.0) % Plt Count 149 L (150-400) K/uL MPV 10.50 (7.40-12.00) fL Neut % (Auto) 64.6 (48.0-80.0) % Lymph % (Auto) 25.2 (16.0-40.0) % Cannon % (Auto) 10.0 (0.0-15.0) % Eos % (Auto) 0.0 (0.0-7.0) % Baso % (Auto) 0.2 (0.0-1.5) % Neut # (Auto) 2.6 (1.4-5.7) K/uL Lymph # (Auto) 1.0 (0.6-2.4) K/uL Cannon # (Auto) 0.4 (0.0-0.8) K/uL Eos # (Auto) 0.0 (0.0-0.7) K/uL Baso # (Auto) 0.0 (0.0-0.1) K/uL Nucleated RBC % 0.0 /100WBC Nucleated RBCs # 0 K/uL Smear Path Review ESR (0-14) mm/hr INR APTT (18.6-31.3) SEC Fibrinogen (215-411) mg/dL D-Dimer, Quantitative (0.0-0.50) mg/L FEU Lactate 2.2 H* (0.20-2.00) mmol/L Sodium 137 (136-148) mmol/L Potassium 4.4 (3.5-5.1) mmol/L Chloride 101 (98-107) mmol/L Carbon Dioxide 26.6 (21.0-32.0) mmol/L BUN 15 (7.0-18.0) mg/dL Creatinine 0.8 (0.8-1.3) mg/dL Est Cr Clr Drug Dosing 112.69 mL/min Estimated GFR (MDRD) > 60.0 ml/min Glucose 80 (74-106) mg/dL Calcium 8.7 (8.5-10.1) mg/dL Total Bilirubin 0.2 (0.2-1.0) mg/dL Direct Bilirubin (0.0-0.5) mg/dL Indirect Bilirubin AST 36 (15-37) IU/L ALT 43 (14-63) IU/L Alkaline Phosphatase 131 H (46-116) U/L Lactate Dehydrogenase (81-234) U/L Creatine Kinase 31 (26-308) U/L Troponin I < 0.050 (0.000-0.056) ng/mL C-Reactive Protein 4.20 H (0.00-0.90) mg/dL Total Protein 8.2 (6.4-8.2) g/dL Albumin 2.8 L (3.4-5.0) g/dL Globulin 5.4 H (2.6-4.0) g/dL Albumin/Globulin Ratio 0.5 L (0.9-1.6) TSH 3rd Generation 2.70 (0.36-3.74) uIU/mL Urine Color Urine Appearance Urine pH (5.0-8.0) Ur Specific Chandler (1.001-1.035) Urine Protein (NEGATIVE) mg/dL Urine Glucose (UA) (NEGATIVE) mg/dL Urine Ketones (NEGATIVE) mg/dL Urine Occult Blood (NEGATIVE) Urine Nitrite (NEGATIVE) Urine Bilirubin (NEGATIVE) Urine Urobilinogen (<2.0) EU/dL Ur Leukocyte Esterase (NEGATIVE) Urine Opiates Screen (NEGATIVE) Ur Oxycodone Screen (NEGATIVE) Urine Methadone Screen (NEGATIVE) Ur Barbiturates Screen (NEGATIVE) Ur Phencyclidine Scrn (NEGATIVE) Ur Amphetamine Screen (NEGATIVE) U Methamphetamines Scrn (NEGATIVE) U Benzodiazepines Scrn (NEGATIVE) U Cocaine Metab Screen (NEGATIVE) U Marijuana (THC) Screen (NEGATIVE) Ethyl Alcohol <3 mg/dL Monoscreen (NEG) 09/28/19 09/28/19 09/28/19 Range/Units 08:30 08:30 08:30 WBC (4.0-11.0) K/uL RBC (4.50-5.90) M/uL Hgb (13.0-17.0) g/dL Hct (38.0-50.0) % MCV (80.0-98.0) fL MCH (27.0-32.0) pg MCHC (31.0-37.0) g/dL RDW Std Deviation (28.0-62.0) fl RDW Coeff of Kristian (11.0-15.0) % Plt Count (150-400) K/uL MPV (7.40-12.00) fL Neut % (Auto) (48.0-80.0) % Lymph % (Auto) (16.0-40.0) % Cannon % (Auto) (0.0-15.0) % Eos % (Auto) (0.0-7.0) % Baso % (Auto) (0.0-1.5) % Neut # (Auto) (1.4-5.7) K/uL Lymph # (Auto) (0.6-2.4) K/uL Cannon # (Auto) (0.0-0.8) K/uL Eos # (Auto) (0.0-0.7) K/uL Baso # (Auto) (0.0-0.1) K/uL Nucleated RBC % /100WBC Nucleated RBCs # K/uL Smear Path Review ESR 60 H (0-14) mm/hr INR 0.90 APTT 26.7 (18.6-31.3) SEC Fibrinogen 453 H (215-411) mg/dL D-Dimer, Quantitative 1.16 H (0.0-0.50) mg/L FEU Lactate (0.20-2.00) mmol/L Sodium (136-148) mmol/L Potassium (3.5-5.1) mmol/L Chloride (98-107) mmol/L Carbon Dioxide (21.0-32.0) mmol/L BUN (7.0-18.0) mg/dL Creatinine (0.8-1.3) mg/dL Est Cr Clr Drug Dosing mL/min Estimated GFR (MDRD) ml/min Glucose (74-106) mg/dL Calcium (8.5-10.1) mg/dL Total Bilirubin (0.2-1.0) mg/dL Direct Bilirubin (0.0-0.5) mg/dL Indirect Bilirubin AST (15-37) IU/L ALT (14-63) IU/L Alkaline Phosphatase (46-116) U/L Lactate Dehydrogenase (81-234) U/L Creatine Kinase (26-308) U/L Troponin I (0.000-0.056) ng/mL C-Reactive Protein (0.00-0.90) mg/dL Total Protein (6.4-8.2) g/dL Albumin (3.4-5.0) g/dL Globulin (2.6-4.0) g/dL Albumin/Globulin Ratio (0.9-1.6) TSH 3rd Generation (0.36-3.74) uIU/mL Urine Color Urine Appearance Urine pH (5.0-8.0) Ur Specific Chandler (1.001-1.035) Urine Protein (NEGATIVE) mg/dL Urine Glucose (UA) (NEGATIVE) mg/dL Urine Ketones (NEGATIVE) mg/dL Urine Occult Blood (NEGATIVE) Urine Nitrite (NEGATIVE) Urine Bilirubin (NEGATIVE) Urine Urobilinogen (<2.0) EU/dL Ur Leukocyte Esterase (NEGATIVE) Urine Opiates Screen (NEGATIVE) Ur Oxycodone Screen (NEGATIVE) Urine Methadone Screen (NEGATIVE) Ur Barbiturates Screen (NEGATIVE) Ur Phencyclidine Scrn (NEGATIVE) Ur Amphetamine Screen (NEGATIVE) U Methamphetamines Scrn (NEGATIVE) U Benzodiazepines Scrn (NEGATIVE) U Cocaine Metab Screen (NEGATIVE) U Marijuana (THC) Screen (NEGATIVE) Ethyl Alcohol mg/dL Monoscreen NEGATIVE (NEG) 09/28/19 09/28/19 09/28/19 Range/Units 08:30 08:30 09:55 WBC (4.0-11.0) K/uL RBC (4.50-5.90) M/uL Hgb (13.0-17.0) g/dL Hct (38.0-50.0) % MCV (80.0-98.0) fL MCH (27.0-32.0) pg MCHC (31.0-37.0) g/dL RDW Std Deviation (28.0-62.0) fl RDW Coeff of Kristian (11.0-15.0) % Plt Count (150-400) K/uL MPV (7.40-12.00) fL Neut % (Auto) (48.0-80.0) % Lymph % (Auto) (16.0-40.0) % Cannon % (Auto) (0.0-15.0) % Eos % (Auto) (0.0-7.0) % Baso % (Auto) (0.0-1.5) % Neut # (Auto) (1.4-5.7) K/uL Lymph # (Auto) (0.6-2.4) K/uL Cannon # (Auto) (0.0-0.8) K/uL Eos # (Auto) (0.0-0.7) K/uL Baso # (Auto) (0.0-0.1) K/uL Nucleated RBC % /100WBC Nucleated RBCs # K/uL Smear Path Review SENT TO PATHOLOGY ESR (0-14) mm/hr INR APTT (18.6-31.3) SEC Fibrinogen (215-411) mg/dL D-Dimer, Quantitative (0.0-0.50) mg/L FEU Lactate (0.20-2.00) mmol/L Sodium (136-148) mmol/L Potassium (3.5-5.1) mmol/L Chloride (98-107) mmol/L Carbon Dioxide (21.0-32.0) mmol/L BUN (7.0-18.0) mg/dL Creatinine (0.8-1.3) mg/dL Est Cr Clr Drug Dosing mL/min Estimated GFR (MDRD) ml/min Glucose (74-106) mg/dL Calcium (8.5-10.1) mg/dL Total Bilirubin 0.2 (0.2-1.0) mg/dL Direct Bilirubin < 0.05 (0.0-0.5) mg/dL Indirect Bilirubin 0.17455 AST (15-37) IU/L ALT (14-63) IU/L Alkaline Phosphatase (46-116) U/L Lactate Dehydrogenase 325 H (81-234) U/L Creatine Kinase (26-308) U/L Troponin I (0.000-0.056) ng/mL C-Reactive Protein (0.00-0.90) mg/dL Total Protein (6.4-8.2) g/dL Albumin (3.4-5.0) g/dL Globulin (2.6-4.0) g/dL Albumin/Globulin Ratio (0.9-1.6) TSH 3rd Generation (0.36-3.74) uIU/mL Urine Color YELLOW Urine Appearance CLEAR Urine pH 6.5 (5.0-8.0) Ur Specific Chandler 1.025 (1.001-1.035) Urine Protein NEGATIVE (NEGATIVE) mg/dL Urine Glucose (UA) NEGATIVE (NEGATIVE) mg/dL Urine Ketones NEGATIVE (NEGATIVE) mg/dL Urine Occult Blood NEGATIVE (NEGATIVE) Urine Nitrite NEGATIVE (NEGATIVE) Urine Bilirubin NEGATIVE (NEGATIVE) Urine Urobilinogen 0.2 (<2.0) EU/dL Ur Leukocyte Esterase NEGATIVE (NEGATIVE) Urine Opiates Screen (NEGATIVE) Ur Oxycodone Screen (NEGATIVE) Urine Methadone Screen (NEGATIVE) Ur Barbiturates Screen (NEGATIVE) Ur Phencyclidine Scrn (NEGATIVE) Ur Amphetamine Screen (NEGATIVE) U Methamphetamines Scrn (NEGATIVE) U Benzodiazepines Scrn (NEGATIVE) U Cocaine Metab Screen (NEGATIVE) U Marijuana (THC) Screen (NEGATIVE) Ethyl Alcohol mg/dL Monoscreen (NEG) 09/28/19 Range/Units 09:55 WBC (4.0-11.0) K/uL RBC (4.50-5.90) M/uL Hgb (13.0-17.0) g/dL Hct (38.0-50.0) % MCV (80.0-98.0) fL MCH (27.0-32.0) pg MCHC (31.0-37.0) g/dL RDW Std Deviation (28.0-62.0) fl RDW Coeff of Kristian (11.0-15.0) % Plt Count (150-400) K/uL MPV (7.40-12.00) fL Neut % (Auto) (48.0-80.0) % Lymph % (Auto) (16.0-40.0) % Cannon % (Auto) (0.0-15.0) % Eos % (Auto) (0.0-7.0) % Baso % (Auto) (0.0-1.5) % Neut # (Auto) (1.4-5.7) K/uL Lymph # (Auto) (0.6-2.4) K/uL Cannon # (Auto) (0.0-0.8) K/uL Eos # (Auto) (0.0-0.7) K/uL Baso # (Auto) (0.0-0.1) K/uL Nucleated RBC % /100WBC Nucleated RBCs # K/uL Smear Path Review ESR (0-14) mm/hr INR APTT (18.6-31.3) SEC Fibrinogen (215-411) mg/dL D-Dimer, Quantitative (0.0-0.50) mg/L FEU Lactate (0.20-2.00) mmol/L Sodium (136-148) mmol/L Potassium (3.5-5.1) mmol/L Chloride (98-107) mmol/L Carbon Dioxide (21.0-32.0) mmol/L BUN (7.0-18.0) mg/dL Creatinine (0.8-1.3) mg/dL Est Cr Clr Drug Dosing mL/min Estimated GFR (MDRD) ml/min Glucose (74-106) mg/dL Calcium (8.5-10.1) mg/dL Total Bilirubin (0.2-1.0) mg/dL Direct Bilirubin (0.0-0.5) mg/dL Indirect Bilirubin AST (15-37) IU/L ALT (14-63) IU/L Alkaline Phosphatase (46-116) U/L Lactate Dehydrogenase (81-234) U/L Creatine Kinase (26-308) U/L Troponin I (0.000-0.056) ng/mL C-Reactive Protein (0.00-0.90) mg/dL Total Protein (6.4-8.2) g/dL Albumin (3.4-5.0) g/dL Globulin (2.6-4.0) g/dL Albumin/Globulin Ratio (0.9-1.6) TSH 3rd Generation (0.36-3.74) uIU/mL Urine Color Urine Appearance Urine pH (5.0-8.0) Ur Specific Chandler (1.001-1.035) Urine Protein (NEGATIVE) mg/dL Urine Glucose (UA) (NEGATIVE) mg/dL Urine Ketones (NEGATIVE) mg/dL Urine Occult Blood (NEGATIVE) Urine Nitrite (NEGATIVE) Urine Bilirubin (NEGATIVE) Urine Urobilinogen (<2.0) EU/dL Ur Leukocyte Esterase (NEGATIVE) Urine Opiates Screen NEGATIVE (NEGATIVE) Ur Oxycodone Screen NEGATIVE (NEGATIVE) Urine Methadone Screen NEGATIVE (NEGATIVE) Ur Barbiturates Screen NEGATIVE (NEGATIVE) Ur Phencyclidine Scrn NEGATIVE (NEGATIVE) Ur Amphetamine Screen NEGATIVE (NEGATIVE) U Methamphetamines Scrn POSITIVE (NEGATIVE) U Benzodiazepines Scrn NEGATIVE (NEGATIVE) U Cocaine Metab Screen NEGATIVE (NEGATIVE) U Marijuana (THC) Screen NEGATIVE (NEGATIVE) Ethyl Alcohol mg/dL Monoscreen (NEG) Meds: Medications Generic Name Dose Route Start Last Admin Trade Name Freq PRN Reason Stop Dose Admin Vancomycin HCl 1.5 gm/ Sodium 500 mls @ 333 mls/hr 09/28/19 11:10 Chloride IV 09/28/19 12:40 NOW STA Discontinued Medications Generic Name Dose Route Start Last Admin Trade Name Freq PRN Reason Stop Dose Admin Piperacillin Sod/Tazobactam 50 mls @ 100 mls/hr 09/28/19 11:10 09/28/19 11:43 Sod 3.375 gm/ Sodium Chloride IV 09/28/19 11:39 100 mls/hr ONETIME ONE Administration Iopamidol 50 ml 09/28/19 11:26 09/28/19 11:26 Isovue Multipack-370 (76%) IVPUSH 09/28/19 11:27 50 ml ONETIME STA Administration Ketorolac Tromethamine 30 mg 09/28/19 08:25 09/28/19 08:32 Toradol IVPUSH 09/28/19 08:26 30 mg ONETIME ONE Administration Lorazepam 0.5 mg 09/28/19 08:25 09/28/19 08:32 Ativan IVPUSH 09/28/19 08:26 0.5 mg ONETIME ONE Administration Departure - Departure Time of Disposition: 12:09 Disposition: Home, Self-Care 01 Condition: Good (ra) Clinical Impression: AMS (altered mental status) - Discharge Information Referrals: PCP,None [Primary Care Provider] - Sepsis Event Note - Evaluation Sepsis Screening Result: Possible Sepsis Risk - Focused Exam Vital Signs: Vital Signs Temp Pulse Resp BP Pulse Ox 09/28/19 11:41 36.3 C 94 18 96/54 L 100 09/28/19 11:34 89 102/53 L 98 09/28/19 10:04 97 111/78 100 09/28/19 09:49 94 20 106/74 09/28/19 08:25 37.2 C 111 H 22 H 120/89 98 Date Exam was Performed: 09/28/19 Time Exam was Performed: 12:06 - My Orders Last 24 Hours: My Active Orders 09/28/19 08:25 Blood Culture x2 Reflex Set [OM.PC] Stat 09/28/19 08:30 HAPTOGLOBIN [REF] Stat RPR (SYPHILIS SERO) W/ RFLX [REF] Stat 09/28/19 08:41 CULTURE BLOOD [BC] Stat 09/28/19 09:00 EKG Documentation Completion [RC] STAT 09/28/19 10:35 CULTURE BLOOD [BC] Stat 09/28/19 11:10 Vancomycin 1.5 gm Sodium Chloride 0.9% [Normal Saline] 500 ml IV NOW - Assessment/Plan Last 24 Hours: My Active Orders 09/28/19 08:25 Blood Culture x2 Reflex Set [OM.PC] Stat 09/28/19 08:30 HAPTOGLOBIN [REF] Stat RPR (SYPHILIS SERO) W/ RFLX [REF] Stat 09/28/19 08:41 CULTURE BLOOD [BC] Stat 09/28/19 09:00 EKG Documentation Completion [RC] STAT 09/28/19 10:35 CULTURE BLOOD [BC] Stat 09/28/19 11:10 Vancomycin 1.5 gm Sodium Chloride 0.9% [Normal Saline] 500 ml IV NOW
== END 2019-09-28 12:54 | disposition home or self-care (01) ==
LOC: MW.ED 08:15
DX: R41.82 Altered mental status, unspecified (principal); R21 Rash and other nonspecific skin eruption; R07.9 Chest pain, unspecified; Z88.5 Allergy status to narcotic agent; Z88.8 Allergy status to other drugs, medicaments and biological substances
CPT/HCPCS: 70450; 71045; 71275; 80053; 80305; 80307; 81003; 82247; 82248; 82550; 83010; 83605; 83615; 84443; 84484; 85025; 85379; 85384; 85610; 85652; 85730; 86140; 86308; 86592; 86593; 87040; 87804; 88104; 93005; 96365; 96367; 96375; 99291; J1885; J2060; J2543; J3370; J7040; J7050; Q9967; 99284

== ENCOUNTER 2021-03-24 03:03 | Emergency (ER) | payer BC ==
[2021-03-24] MEDS ORDERED: Tetracaine HCl/PF 0.5% 4 ML Bottle EYEBOTH ONE (03:35)
--- NOTE | 2021-03-24 03:42 | EDM.PDOC ---
ED HPI GENERAL MEDICAL PROBLEM - General Chief Complaint: ENT Problem Stated Complaint: BOTH EYES SWOLLEN AND RED Time Seen by Provider: 03/24/21 03:30 Source of Information: Reports: Patient History Limitations: Reports: No Limitations - History of Present Illness INITIAL COMMENTS - FREE TEXT/NARRATIVE: Patient is a 35-year-old male brought in for bilateral eye redness and drainage. He states that for the past few days his right eye was red and swollen had a lot of tearing now spread to his left eye as well. He states that he also has some crust in the morning. Denies any vision changes. Feels as though some grainy in his eyes. Denies working any metal or anything seen related. Denies any other symptoms no confusion any neurological signs such as weakness or numb ness extremities denies any nausea vomiting fevers chills Bilateral Eye Pain Score (Numeric/FACES): 6 - Related Data Allergies Allergy/AdvReac Type Severity Reaction Status Date / Time acetaminophen [From Lortab] Allergy Itching Verified 09/28/19 08:24 hydrocodone [From Lortab] Allergy Itching Verified 09/28/19 08:24 Home Meds: Home Meds Abacavir/Dolutegravir/Lamivudi [Triumeq 600-50-300 mg Tablet] 1 tab PO DAILY 03/24/21 [History] Past Medical History HEENT History: Reports: None Gastrointestinal History: Reports: GERD, Hiatal Hernia, Other (See Below) Other Gastrointestinal History: takes no meds for heartburn. 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 Musculoskeletal History: Reports: Amputation, Fracture, Other (See Below) Other Musculoskeletal History: right hand ring and pinky finger from accident Psychiatric History: Reports: Addiction, Anxiety, Depression Other Psychiatric History: meth use via IV Oncologic (Cancer) History: Reports: None - Infectious Disease History Infectious Disease History: Reports: Chicken Pox - Past Surgical History HEENT Surgical History: Reports: None Musculoskeletal Surgical History: Reports: Other (See Below) Social & Family History - Family History Family Medical History: No Pertinent Family History - Caffeine Use Caffeine Use: Reports: None ED ROS GENERAL - Review of Systems Review Of Systems: See Below Constitutional: Reports: No Symptoms HEENT: Reports: Eye Discharge Respiratory: Reports: No Symptoms Cardiovascular: Reports: No Symptoms Endocrine: Reports: No Symptoms GI/Abdominal: Reports: No Symptoms : Reports: No Symptoms Musculoskeletal: Reports: No Symptoms Skin: Reports: No Symptoms Neurological: Reports: No Symptoms Psychiatric: Reports: No Symptoms Hematologic/Lymphatic: Reports: No Symptoms Immunologic: Reports: No Symptoms ED EXAM GENERAL W FULL EYE - Physical Exam Exam: See Below Exam Limited By: No Limitations General Appearance: Alert, WD/WN, No Apparent Distress Visual Acuity (R) 20/: 30 Visual Acuity (L) 20/: 0 Eyelids: Bilateral: Edema Conjunctiva & Sclera: Bilateral: Injected Extraocular Movements: Bilateral: Intact Head: Atraumatic, Normocephalic Respiratory/Chest: No Respiratory Distress Extremities: Normal Inspection Neurological: Alert, Oriented Course - Vital Signs Last Recorded V/S: Last Vital Signs Temp 97.4 F 03/24/21 03:34 Pulse 91 03/24/21 03:34 Resp 16 03/24/21 03:34 BP 132/85 03/24/21 03:34 Pulse Ox 97 03/24/21 03:34 - Orders/Labs/Meds Meds: Medications Discontinued Medications Generic Name Dose Route Start Last Admin Trade Name Freq PRN Reason Stop Dose Admin Tetracaine HCl 1 ml 03/24/21 03:35 Tetracaine Hcl/Pf 0.5% 4 Ml Bottle EYEBOTH 03/24/21 03:36 ASDIRECTED ONE - Re-Assessments/Exams Free Text/Narrative Re-Assessment/Exam: 03/24/21 03:53 Patient trotter lamp exam not show any abrasion any discharge or wheezing. Patient likely has a bilateral bacterial enteritis. We will provide IV antibiotic ointment and have patient follow-up with ophthalmology tomorrow. Departure - Departure Time of Disposition: 03:54 Disposition: Home, Self-Care 01 Condition: Good Clinical Impression: Acute bacterial conjunctivitis of both eyes - Discharge Information *PRESCRIPTION DRUG MONITORING PROGRAM REVIEWED*: Not Applicable *COPY OF PRESCRIPTION DRUG MONITORING REPORT IN PATIENT GARRY: Not Applicable Instructions: Bacterial Conjunctivitis, Adult, [id number] Referrals: PCP,Not In Area [Primary Care Provider] - Forms: ED Department Discharge Additional Instructions: The following information is given to patients seen in the emergency department who are being discharged to home. This information is to outline your options for follow-up care. We provide all patients seen in our emergency department with a follow-up referral. The need for follow-up, as well as the timing and circumstances, are variable depending upon the specifics of your emergency department visit. If you don't have a primary care physician on staff, we will provide you with a referral. We always advise you to contact your personal physician following an emergency department visit to inform them of the circumstance of the visit and for follow-up with them and/or the need for any referrals to a consulting specialist. The emergency department will also refer you to a specialist when appropriate. This referral assures that you have the opportunity for follow-up care with a specialist. All of these measure are taken in an effort to provide you with optimal care, which includes your follow-up. Under all circumstances we always encourage you to contact your private physician who remains a resource for coordinating your care. When calling for follow-up care, please make the office aware that this follow-up is from your recent emergency room visit. If for any reason you are refused follow-up, please contact the [facility] Emergency Department at and asked to speak to the emergency department charge nurse. Please follow up with your primary care physician. If you do not have a primary care physician, see below: Ophthalmology [id number] [place] [id number] [address] You were seen for redness and drainage to your eyes, you likely have bacterial conjunctivitis. We will send you some eye ointment to take. Above the number to her pressure controller please give them a call tomorrow and try to follow-up with him. Sepsis Event Note (ED) - Focused Exam Vital Signs: Vital Signs Temp Pulse Resp BP Pulse Ox 03/24/21 03:34 97.4 F 91 16 132/85 97 - Assessment/Plan Plan: Patient is a 35-year-old male presents today for bilateral eye drainage. Patie nt denies any vision changes vision acuity he cannot schedule left right eye is 20/30. Looks to be a viral conjunctivitis Will do exam and reassess patient
[2021-03-24 04:25] VITALS: BP 124/73; PULSE 81
== END 2021-03-24 04:25 | disposition home or self-care (01) ==
LOC: MW.ED 03:03
DX: H10.023 Other mucopurulent conjunctivitis, bilateral (principal); Z88.5 Allergy status to narcotic agent
CPT/HCPCS: 99283

== ENCOUNTER 2023-04-25 14:37 | Emergency (ER) | payer BC ==
[2023-04-25] MEDS ORDERED: Morphine 4 MG/ML Syringe IVPUSH ONE (15:43)
[2023-04-25] MEDS ORDERED: Naloxone 0.4 MG/ML SDV IVPUSH PRN (15:43)
[2023-04-25 16:32] LABS: BASOPHILS PERCENT AUTO 0.3 % (0.0-1.5); EOSINOPHILS ABSOLUTE AUTO 0.2 K/uL (0.0-0.7); EOSINOPHILS PERCENT AUTO 2.7 % (0.0-7.0); HEMATOCRIT 43.8 % (38.0-50.0); HEMOGLOBIN 14.9 g/dL (13.0-17.0); LYMPHOCYTES ABSOLUTE AUTO 2.2 K/uL (0.6-2.4); LYMPHOCYTES PERCENT AUTO 31.1 % (16.0-40.0); MEAN CORPUSCULAR HEMOGLOBIN 29.2 pg (27.0-32.0); MEAN CORPUSCULAR VOLUME 85.9 fL (80.0-98.0); MONOCYTES ABSOLUTE AUTO 0.6 K/uL (0.0-0.8); NEUTROPHILS PERCENT AUTO 57.9 % (48.0-80.0); NRBC ABSOLUTE 0 K/uL; PLATELET COUNT,PLT 316 K/uL (150-400); WHITE BLOOD CELL COUNT,WBC 6.91 K/uL (4.0-11.0)
[2023-04-25 16:59] LABS: A/G RATIO 0.8 (0.9-1.6); ALANINE AMINOTRANSFERASE,ALT 37 IU/L (14-63); ALBUMIN 3.6 g/dL (3.4-5.0); ALKALINE PHOSPHATASE 76 U/L (46-116); ASPARTATE AMNIOTRANSFERASE,AST 18 IU/L (15-37); BILIRUBIN TOTAL 0.2 mg/dL (0.2-1.0); BLOOD UREA NITROGEN,BUN 16 mg/dL (7.0-18.0); CALCIUM 8.7 mg/dL (8.5-10.1); CARBON DIOXIDE,CO2 28.9 mmol/L (21.0-32.0); CHLORIDE,CL 104 mmol/L (98-107); EST CRCL DRUG DOSING (CG) 113.19 mL/min; GLUCOSE RANDOM 83 mg/dL (74-106); LIPASE 82 U/L (16-77); POTASSIUM,K 4.2 mmol/L (3.5-5.1); PROTEIN TOTAL,TP 7.9 g/dL (6.4-8.2); SODIUM,NA 138 mmol/L (136-148)
[2023-04-25 17:00] LABS: ESTIMATED GFR 99 mL/min (>60); ETHANOL BLOOD MEDICAL < 3.0 mg/dL
[2023-04-25 17:28] LABS: APPEARANCE,URINE CLEAR; BILIRUBIN,URINE NEGATIVE (NEGATIVE); COLOR,URINE YELLOW; GLUCOSE,URINE NEGATIVE (NEGATIVE); KETONES,URINE NEGATIVE (NEGATIVE); LEUKOCYTE ESTERASE,URINE NEGATIVE (NEGATIVE); NITRITE,URINE NEGATIVE (NEGATIVE); OCCULT BLOOD,URINE NEGATIVE (NEGATIVE); PROTEIN,URINE NEGATIVE (NEGATIVE); UROBILINOGEN,URINE 0.2 EU/dL (<2.0)
[2023-04-25 17:38] LABS: AMPHETAMINES SCREEN, URINE PRESUMPTIVE POSITIVE (CUTOFF=500); BARBITURATE SCREEN,URINE NEGATIVE (CUTOFF=200); BENZODIAZEPINES SCREEN,URINE NEGATIVE (CUTOFF=150); BUPRENORPHINE SCREEN,URINE NEGATIVE (CUTOFF=10); METHADONE SCREEN, URINE NEGATIVE (CUTOFF=200); METHAMPHETAMINES SCREEN, URINE PRESUMPTIVE POSITIVE (CUTOFF=500); OXYCODONE SCREEN,URINE NEGATIVE (CUT0FF=100); PCP SCREEN,URINE NEGATIVE (CUTOFF=25); PROPOXYPHENE SCREEN,URINE NEGATIVE (CUTOFF=300); THC SCREEN,URINE 20 NG/ML NEGATIVE (CUTOFF=50)
[2023-04-25 17:46] LABS: BACTERIA,URINE FEW (NEGATIVE); EPITHELIAL CELLS,URINE OCCASIONAL (NONE-FEW); RBC,URINE 0-1 (0-2/HPF); WBC,URINE 0-2 (0-5/HPF)
[2023-04-25] MEDS ORDERED: Iopamidol 755 MG/ML 500 ML Multipack Bottle IVPUSH STA ×2 (17:57→18:00)
[2023-04-25 19:20] VITALS: BP 125/80; PULSE 72
== END 2023-04-25 19:20 | disposition home or self-care (01) ==
LOC: MW.ED 14:37
DX: R10.32 Left lower quadrant pain (principal); M79.604 Pain in right leg; M79.605 Pain in left leg; Z88.5 Allergy status to narcotic agent
CPT/HCPCS: 36415; 74177; 80053; 80305; 80307; 81001; 83605; 83690; 85025; 96374; 99284; J2270; Q9967